=== PATIENT | male | born 1935 | race Caucasian/White ===

== ENCOUNTER 2019-06-06 04:10 | Inpatient (IN) | payer MEDICARE, OTHER ==
[~2019-06-06] VITALS: Ht 182.9 cm; Wt 71.3 kg
[2019-06-06] VITALS (17 sets, daily range): BP systolic 105–157; BP diastolic 51–70
[~2019-06-06 04:10] MED LIST: ACET500T33 PO; ASPI-612 PO; ATORVASTATIN CA80 MG PO; CARV3.12 PO; CHOL200074 PO; CIPR250T30 PO; CLOP75TA PO; FURO20TA3 PO; GUAI600T79 PO; HYDR-3164 PO; ISOS60TA2 PO; LOSA25TA PO; MULT1TAB97 PO; NITR0.4T22 SL; OMEG1CAP38 PO; ONDA4TAB10 SL; ONDA4TAB7 PO; PANT40TA77 PO; POTA10TA12 PO; RANO10002 PO; UBID100C PO
[2019-06-06] MEDS ORDERED: HEPARIN for IV BOLUS 10,000 UNIT/10 ML VIAL. ONE (04:20)
[2019-06-06] MEDS ORDERED: HEPARIN 25,000UTS/500ML PREMIX 500 ML IV ONE (04:20)
[2019-06-06 04:30] LABS: BASO % 1 % (0-3); EOS # 0.4 x10^3/uL (0.0-0.7); EOS % 6 % (0-3); HEMATOCRIT 38.4 % (39.0-53.0); HEMOGLOBIN 12.8 g/dL (13.0-17.5); LYMPH % 18 % (24-48); MEAN CORPUSCULAR HEMOGLOBIN 29 pg (25-35); MEAN CORPUSCULAR HGB CONC 33 g/dL (31-37); MEAN CORPUSCULAR VOLUME 88 fL (79-100); MONO # 0.6 x10^3/uL (0.0-1.1); MONO % 11 % (0-9); NEUT # 3.7 x10^3/uL (1.8-7.7); NEUT % 65 % (31-73); PLATELET COUNT 143 x10^3/uL (140-400); RED BLOOD COUNT 4.36 x10^6/uL (4.30-5.70); RED CELL DISTRIBUTION WIDTH 14.6 % (11.5-14.5); WHITE BLOOD COUNT 5.7 x10^3/uL (4.0-11.0)
[2019-06-06] MEDS: HEPARIN for IV BOLUS 10,000 UNIT/10 ML VIAL. IV ONE ×2 (04:30→04:49)
[2019-06-06 04:42] LABS: PROTHROMBIN TIME PATIENT 13.2 SEC (11.7-14.0)
--- NOTE | 2019-06-06 04:46 | RAD ---
EXAM: CHEST 1 VIEW History: Chest pain COMPARISON: 05/13/2016 TECHNIQUE: Single portable radiograph of the chest FINDINGS: Mild cardiomegaly. Minimal prominent bilateral interstitial lung markings could be chronic interstitial changes. The costophrenic sulci are clear and well demarcated. IMPRESSION: Minimal prominent bilateral interstitial lung markings could be chronic interstitial changes. Electronically signed by: Blake Wallace MD (06/06/2019 4:43 AM) [facility]
[2019-06-06 04:47] LABS: CALCIUM 9.9 mg/dL (8.5-10.1); CREATININE 1.2 mg/dL (0.7-1.3); GFR 57.5; POTASSIUM 3.6 mmol/L (3.5-5.1)
[2019-06-06] MEDS ORDERED: IODIXANOL 320 MG/ML 100 ML VIAL. ONE (04:51)
[2019-06-06] MEDS ORDERED: LIDOCAINE 1% Multi-Dose 20 ML VIAL. ONE (04:51)
[2019-06-06] MEDS ORDERED: HEPARIN for ARTERIAL LINE 1,500 ML ONE (04:51)
--- NOTE | 2019-06-06 04:52 | PHYS DOC ---
Past Medical History Past Medical History: Hypertension, Other Additional Past Medical Histor: ESSENTIAL TREMORS Past Surgical History: Other Additional Past Surgical Histo: open heart surgery, LEFT HAND Alcohol Use: None Drug Use: None Adult General Chief Complaint Chief Complaint: CHEST PAIN [facility] HPI Patient is a 84 year old male with history of dementia who presents via EMS with complaining of chest pain. Patient has dementia and unable to give history but his stated that he complaining of chest pain at 3 AM about an hour prior to arrival to ER while he was watching TV as a constant pain without radiation associated with shortness of breath without nausea and palpitation and treated with nitroglycerin 2 by his . EMS gave the patient 324 mg of aspirin. Patient felt better after second nitroglycerin according to his . Review of Systems Review of Systems Constitutional: Denies fever or chills [] Eyes: Denies change in visual acuity, redness, or eye pain [] HENT: Denies nasal congestion or sore throat [] Respiratory: Denies cough, reports shortness of breath [] Cardiovascular: No additional information not addressed in HPI [] GI: Denies abdominal pain, nausea, vomiting, bloody stools or diarrhea [] : Denies dysuria or hematuria [] Musculoskeletal: Denies back pain or joint pain [] Integument: Denies rash or skin lesions [] Neurologic: Denies headache, focal weakness or sensory changes [] Endocrine: Denies polyuria or polydipsia [] All other systems were reviewed and found to be within normal limits, except as documented in this note. Current Medications Current Medications Current Medications Medications (Trade) Dose Ordered Sig/Kameron Start Time Stop Time Status Last Admin Dose Admin Heparin Sodium (Porcine) (Heparin Sodium) 10,000 unit STK-MED ONCE 06/06/19 04:20 06/06/19 04:20 DC Heparin Sodium/ Dextrose 500 ml @ As Directed STK-MED ONCE 06/06/19 04:20 06/06/19 04:21 DC Allergies Allergies Allergies Coded Allergies Type Severity Reaction Last Updated Verified KEERTHI Inhibitors Allergy Intermediate 03/16/16 Yes ARB-Angiotensin Receptor Antagonist Allergy Intermediate 03/16/16 Yes hydrocodone Allergy Intermediate Nausea and Vomiting 03/16/16 Yes krill oil Allergy Intermediate 03/16/16 Yes donepezil Allergy Mild Nausea and Vomiting 05/13/16 Yes Physical Exam Physical Exam Constitutional: Well nourished, mild distress, non-toxic appearance. [] HENT: Normocephalic, atraumatic. Eyes: PERRLA, EOMI, conjunctiva normal, no discharge. [] Neck: Normal range of motion, no tenderness, supple, no stridor. [] Cardiovascular:Heart rate regular rhythm, no murmur [] Lungs & Thorax: Bilateral breath sounds clear to auscultation [] Abdomen: Bowel sounds normal, soft, no tenderness, no masses, no pulsatile masses. [] Skin: Warm, dry, no erythema, no rash. [] Back: No tenderness, no CVA tenderness. [] Extremities: No tenderness, no cyanosis, no clubbing, ROM intact, no edema. [] Neurologic: Alert and oriented X 1, no focal deficits noted. [] Psychologic: Affect anxious, mood normal. [] Current Patient Data Lab Values Laboratory Tests Test 06/06/19 04:15 White Blood Count 5.7 x10^3/uL (4.0-11.0) Red Blood Count 4.36 x10^6/uL (4.30-5.70) Hemoglobin 12.8 g/dL (13.0-17.5) L Hematocrit 38.4 % (39.0-53.0) L Mean Corpuscular Volume 88 fL (79-100) Mean Corpuscular Hemoglobin 29 pg (25-35) Mean Corpuscular Hemoglobin Concent 33 g/dL (31-37) Red Cell Distribution Width 14.6 % (11.5-14.5) H Platelet Count 143 x10^3/uL (140-400) Neutrophils (%) (Auto) 65 % (31-73) Lymphocytes (%) (Auto) 18 % (24-48) L Monocytes (%) (Auto) 11 % (0-9) H Eosinophils (%) (Auto) 6 % (0-3) H Basophils (%) (Auto) 1 % (0-3) Neutrophils # (Auto) 3.7 x10^3/uL (1.8-7.7) Lymphocytes # (Auto) 1.0 x10^3/uL (1.0-4.8) Monocytes # (Auto) 0.6 x10^3/uL (0.0-1.1) Eosinophils # (Auto) 0.4 x10^3/uL (0.0-0.7) Basophils # (Auto) 0.0 x10^3/uL (0.0-0.2) Prothrombin Time 13.2 SEC (11.7-14.0) Prothrombin Time INR 1.0 (0.8-1.1) Sodium Level 139 mmol/L (136-145) Potassium Level 3.6 mmol/L (3.5-5.1) Chloride Level 103 mmol/L (98-107) Carbon Dioxide Level 29 mmol/L (21-32) Anion Gap 7 (6-14) Blood Urea Nitrogen 22 mg/dL (8-26) Creatinine 1.2 mg/dL (0.7-1.3) Estimated GFR (Cockcroft-Gault) 57.5 BUN/Creatinine Ratio 18 (6-20) Glucose Level 100 mg/dL (70-99) H Calcium Level 9.9 mg/dL (8.5-10.1) Magnesium Level 1.6 mg/dL (1.8-2.4) L Total Bilirubin 0.6 mg/dL (0.2-1.0) Aspartate Amino Transferase (AST) 19 U/L (15-37) Alanine Aminotransferase (ALT) 13 U/L (16-63) L Alkaline Phosphatase 62 U/L (46-116) Creatine Kinase 67 U/L (39-308) Troponin I Quantitative < 0.017 ng/mL (0.000-0.055) GV-Tue-C-Type Natriuretic Peptide 2515 pg/mL (0-449) H Total Protein 8.5 g/dL (6.4-8.2) H Albumin 4.0 g/dL (3.4-5.0) Albumin/Globulin Ratio 0.9 (1.0-1.7) L Lipase 168 U/L (73-393) Laboratory Tests 06/06/19 04:15 Laboratory Tests 06/06/19 04:15 EKG EKG EKG interpreted by me. EKG at 0415 showed normal sinus rhythm at rate of 96, PVCs, prolonged RI at 238, ST elevation in inferior leads with reciprocal changes in anteroseptal leads, Q-wave in inferior and anterior leads. Radiology/Procedures Radiology/Procedures [][facility] [address] [place] [address] IMAGING REPORT Signed PATIENT: POPPY SANCHEZ ACCOUNT: [id number] : 1935 LOCATION: ER AGE: 84 SEX: M EXAM STATUS: PRE ER ORD. PHYSICIAN: ZACHARY BORGES MD REASON: chest pain PROCEDURE: PORTABLE CHEST 1V EXAM: CHEST 1 VIEW History: Chest pain COMPARISON: 05/13/2016 TECHNIQUE: Single portable radiograph of the chest FINDINGS: Mild cardiomegaly. Minimal prominent bilateral interstitial lung markings could be chronic interstitial changes. The costophrenic sulci are clear and well demarcated. IMPRESSION: Minimal prominent bilateral interstitial lung markings could be chronic interstitial changes. Electronically signed by: Blake Wallace MD (06/06/2019 4:43 AM) [facility] DICTATED and SIGNED BY: BLAKE WALLACE MD DATE: 06/06/19 0443 Course & Med Decision Making Course & Med Decision Making Pertinent Labs and Imaging studies reviewed. (See chart for details) Evaluation of patient in ER showed 84-year-old male patient with heart score of 7000 by EMS because of chest pain and ST elevation in inferior leads. EKG in ER showed ST elevation in inferior leads and code STEMI was activated at 0419. Dr. Avila on-call computer aide was consulted at 0 421. Patient has dementia and unable to give history but his stated that he is a DNR but once cardiac catheterization. Dr. Avila presented to ER and was not agreed with STEMI and called patient unstable angina and recommended to admit patient to ICU and start nitroglycerin and heparin drip.Patient requiring admission for further evaluation and treatment. Discussed with Dr. Mckay who is in agreement with admission. Discussed findings and plan with patient and family, who acknowledge understanding and agreement. Dragon Disclaimer Dragon Disclaimer This electronic medical record was generated, in whole or in part, using a voice recognition dictation system. Departure Departure Impression: Primary Impression: Unstable angina Additional Impressions: Chest pain Dementia Hypomagnesemia CHF (congestive heart failure) Disposition: ADMITTED INPATIENT (at 0 425) Admitting Physician: KELSEY (Dr. Mckay accepted admission) Condition: GUARDED Referrals: JORGE A CANAS MD (PCP) The HEART Score for CP Pts HEART Score for Chest Pain: HEART Score for Chest Pain Response (Comments) Value History Moderately Suspicious [address] Depression 2 Age > 65 2 Risk Factors >3 Risk Factors or Hx CAD 2 Troponin < Normal Limit 0 Total 7 Risk Factors: Risk Factors: DM, Current or recent (<one month) smoker, HTN, HLP, family history of CAD, obesity. Risk Scores: Score 0 - 3: 2.5% MACE over next 6 weeks - Discharge Home Score 4 - 6: 20.3% MACE over next 6 weeks - Admit for Clinical Observation Score 7 - 10: 72.7% MACE over next 6 weeks - Early Invasive Strategies Critical Care Time Critical care time was 40 minutes exclusive of procedures. Problem Qualifiers Additional Impressions: Chest pain Chest pain type: unspecified Qualified Codes: R07.9 - Chest pain, unspecified Dementia Dementia type: unspecified type Dementia behavioral disturbance: without behavioral disturbance Qualified Codes: F03.90 - Unspecified dementia without behavioral disturbance CHF (congestive heart failure) Heart failure type: unspecified Heart failure chronicity: unspecified Qualified Codes: I50.9 - Heart failure, unspecified ZACHARY BORGES MD Jun 06, 2019 04:52
[2019-06-06 04:54] LABS: ALBUMIN/GLOBULIN RATIO 0.9 (1.0-1.7); MAGNESIUM 1.6 mg/dL (1.8-2.4); TOTAL BILIRUBIN 0.6 mg/dL (0.2-1.0); TOTAL PROTEIN 8.5 g/dL (6.4-8.2)
[2019-06-06] MEDS ORDERED: MIDAZOLAM HCL/PF 2 MG/2 ML VIAL. ONE (04:55)
[2019-06-06] MEDS ORDERED: fentaNYL PF VIAL 100 MCG/2 ML VIAL ONE (04:55)
[2019-06-06] MEDS ORDERED: HEPARIN 25,000UTS/500ML PREMIX 500 ML IV PRN ×2 (05:45→06:00)
[2019-06-06] MEDS ORDERED: HEPARIN 25,000UTS/500ML PREMIX 500 ML IV STA (05:52)
[2019-06-06] MEDS ORDERED: NITROGLYCERIN PREMIX 250 ML IV ONE (06:00)
[2019-06-06] MEDS ORDERED: HEPARIN for IV BOLUS 10,000 UNIT/10 ML VIAL. IV PRN (06:00)
[2019-06-06] MEDS: ANTI-COAG MONITOR BY PHARMACY. MC PRN (06:04)
--- NOTE | 2019-06-06 10:09 | EKG ---
[facility] [address] [place] [address] Test Date: 2019-06-06 Test Time: 04:16:13 Pat Name: POPPY SANCHEZ Department: Room: 108 1 Gender: M Ux Lead: : 1935 Requested By: ZACHARY BORGES Order Number: [id number] Reading MD: Bryce Ribeiro MD Measurements Intervals [place] Rate: 95 P: 90 MD: 232 QRS: -57 QRSD: 126 T: 98 QT: 360 QTc: 456 Interpretive Statements SINUS RHYTHM PROLONGED MD INTERVAL ABNORMAL LEFT AXIS DEVIATION RBBB CONSIDER PACED RHYTHM Electronically Signed On 06-16-2019 10:23:26 CDT by Bryce Ribeiro MD
[2019-06-06] MEDS ORDERED: ACETAMINOPHEN 500 MG TABLET PO PRN (11:30)
[2019-06-06] MEDS ORDERED: NITROGLYCERIN SUBLINGUAL 0.4 MG BOTTLE OF 25. SL PRN (11:30)
[2019-06-06] MEDS ORDERED: ESCITALOPRAM OXA5 MG PO (11:35)
[2019-06-06] MEDS ORDERED: CHLO25TA10 PO (11:35)
[2019-06-06] MEDS ORDERED: MEMA10TA PO (11:35)
[2019-06-06] MEDS ORDERED: ATOR40TA59 PO (11:35)
[2019-06-06] MEDS ORDERED: HYDR-2867 PO (11:35)
[2019-06-06 12:22] LABS: BILIRUBIN,URINE NEGATIVE (NEG); CLARITY,URINE CLEAR; COLOR,URINE AMBER; NITRITE,URINE NEGATIVE (NEG); PROTEIN,URINE NEGATIVE (NEG-TRACE)
--- NOTE | 2019-06-06 12:27 | PDOC2 ---
CONSULT Date of Consult Date of Consult DATE: 06/06/19 TIME: 12:15 Reason for Consult Reason for Consult: chest pain Referring Physician Referring Physician: Dr. Mckay Identification/Chief Complaint Chief Complaint chest pain Source Source: Caregiver, Chart review, Patient History of Present Illness Reason for Visit: The patient is a moderately demented 84-year-old male who was brought to the emergency room early this morning secondary to episodes of chest pressure. He has an extensive cardiac history including a bypass operation more than 20 years ago. He is followed at [facility] and had a cardiac catheterization approximately one year ago which the patient's family reports showed non-showed disease that was not amenable to revascularization. He has been treated with medications including Ranexa and overall has done reasonably well. His EKG shows inferior Q waves and ST segment changes which are similar to our most recent available EKG from [facility]. Upon discussion the patient is demented. He reports relatively mild chest discomfort which he has had by his report over multiple months. He is resting comfortable in the ER room. Past Medical History Cardiovascular: CAD, CHF, HTN, MA, Hyperlipidemia CENTRAL NERVOUS SYSTEM: Dementia Past Surgical History Past Surgical History: CABG Family History Family History: Heart Disease Social History No ALCOHOL: none Drugs: None Current Problem List Problem List Problems Medical Problems: (1) Chest pain Status: Acute (2) CHF (congestive heart failure) Status: Acute (3) Dementia Status: Acute (4) Hypomagnesemia Status: Acute (5) Unstable angina Status: Acute Current Medications Current Medications Current Medications Heparin Sodium (Porcine) (Heparin Sodium) 10,000 unit STK-MED ONCE .ROUTE ; Start 06/06/19 at 04:20; Stop 06/06/19 at 04:20; Status DC Heparin Sodium/ Dextrose 500 ml @ As Directed STK-MED ONCE IV ; Start 06/06/19 at 04:20; Stop 06/06/19 at 04:21; Status DC Heparin Sodium (Porcine) (Heparin Sodium) 4,000 unit 1X ONCE IV Last administered on 06/06/19at 04:30; Start 06/06/19 at 05:00; Stop 06/06/19 at 05:01; Status DC Iodixanol (Visipaque 320) 100 ml STK-MED ONCE .ROUTE ; Start 06/06/19 at 04:51; Stop 06/06/19 at 04:51; Status DC Lidocaine HCl (Lidocaine 1% 20ml Vial) 20 ml STK-MED ONCE .ROUTE ; Start 06/06/19 at 04:51; Stop 06/06/19 at 04:51; Status DC Heparin Sodium/ Sodium Chloride 1,500 ml @ As Directed STK-MED ONCE .ROUTE ; Start 06/06/19 at 04:51; Stop 06/06/19 at 04:51; Status DC Fentanyl Citrate (Fentanyl 2ml Vial) 100 mcg STK-MED ONCE .ROUTE ; Start 06/06/19 at 04:55; Stop 06/06/19 at 04:55; Status DC Midazolam HCl (Versed) 2 mg STK-MED ONCE .ROUTE ; Start 06/06/19 at 04:55; Stop 06/06/19 at 04:55; Status DC Heparin Sodium/ Dextrose 500 ml @ 0 mls/hr CONT PRN IV SEE I/O RECORD; Start 06/06/19 at 05:45; Status Cancel Nitroglycerin/ Dextrose 250 ml @ 0 mls/hr 1X ONCE IV Last administered on 06/06/19at 06:05; Start 06/06/19 at 06:00; Stop 06/06/19 at 06:01; Status DC Heparin Sodium/ Dextrose 500 ml @ 0 mls/hr CONT STAT IV ; Start 06/06/19 at 05:52; Stop 06/06/19 at 05:53; Status UNV Heparin Sodium/ Dextrose 500 ml @ 0 mls/hr CONT PRN IV NSTEMI Last administered on 06/06/19at 06:15; Start 06/06/19 at 06:00 Heparin Sodium (Porcine) (Heparin Sodium) 1,800 unit PRN Q6HRS PRN IV FOR UFH LEVEL LESS THAN 0.2; Start 06/06/19 at 06:00 Info (Anti-Coagulation Monitoring By Pharmacy) 1 each PRN DAILY PRN MC SEE COMMENTS Last administered on 06/06/19at 06:04; Start 06/06/19 at 06:15 Acetaminophen (Tylenol) 500 mg PRN Q6HRS PRN PO PAIN; Start 06/06/19 at 11:30 Aspirin (Ecotrin) 81 mg DAILY PO ; Start 06/06/19 at 12:30 Clopidogrel Bisulfate (Plavix) 75 mg DAILY PO ; Start 06/06/19 at 12:30 Nitroglycerin (Nitrostat) 0.4 mg PRN Q5MIN PRN SL CHEST PAIN; Start 06/06/19 at 11:30 Pantoprazole Sodium (Protonix) 40 mg DAILY PO ; Start 06/06/19 at 12:30 Vitamin D (Vitamin D3) 2,000 unit DAILY PO ; Start 06/06/19 at 12:30 Multivitamins (Thera M Plus) 1 tab DAILY PO ; Start 06/06/19 at 12:30 Non-Formulary Medication (Ubidecarenone (Coenzyme Q10)) 100 mg DAILY PO ; Start 06/07/19 at 09:00; Status UNV Active Scripts Active [place] 5-325 Tablet (Acetaminophen/Hydrocodone Bitart) 1 Each Tablet 1-2 Tab PO Q4-6HRS Reported Namenda (Memantine Hcl) 10 Mg Tablet 1 Tab PO BID Hydralazine Hcl 10 Mg Tablet 1 Tab PO BID Lexapro (Escitalopram Oxalate) 5 Mg Tablet 5 Mg PO DAILY Chlorthalidone (Chlorthalidone) 25 Mg Tablet 25 Mg PO DAILY Atorvastatin Calcium 40 Mg Tablet 40 Mg PO HS Coenzyme Q10 (Ubidecarenone) 100 Mg Capsule 100 Mg PO DAILY Clopidogrel (Clopidogrel Bisulfate) 75 Mg Tablet 1 Tab PO DAILY Vitamin D-3 (Cholecalciferol (Vitamin D3)) 2,000 Unit Capsule 2,000 Unit PO ELINOR Y Daily Multiple Vitamin (Multivitamin) 1 Each Tablet 1 Each PO DAILY Aspirin Ec (Aspirin) 81 Mg Tablet. 1 Tab PO DAILY Tylenol Extra Strength (Acetaminophen) 500 Mg Tablet 500 Mg PO Q6HRS PRN Protonix (Pantoprazole Sodium) 40 Mg Tablet. 1 Tab PO DAILY NITROGLYCERIN SubLingual (Nitroglycerin) 0.4 Mg Tab.subl 0.4 Mg SL PRN Q5MIN PRN Allergies Allergies: Coded Allergies: KEERTHI Inhibitors (Verified Allergy, Intermediate, 03/16/16) ARB-Angiotensin Receptor Antagonist (Verified Allergy, Intermediate, 03/16/16) hydrocodone (Verified Allergy, Intermediate, Nausea and Vomiting, 03/16/16) krill oil (Verified Allergy, Intermediate, 03/16/16) donepezil (Verified Allergy, Mild, Nausea and Vomiting, 05/13/16) ROS General: YES: Fatigue Cardiovascular: yes Chest Pain Physical Exam General: mild distress HEENT: Atraumatic Lungs: Other (mildly decreased breath sounds) Heart: Regular rate Abdomen: Normal bowel sounds Vitals VITALS Vital Signs Date Time Temp Pulse Resp B/P (MAP) Pulse Ox O2 Delivery O2 Flow Rate FiO2 06/06/19 12:00 60 16 125/61 (82) 99 Nasal Cannula 2.0 06/06/19 08:00 98.4 98.4 Labs Labs Laboratory Tests Test 06/06/19 04:15 White Blood Count 5.7 x10^3/uL (4.0-11.0) Red Blood Count 4.36 x10^6/uL (4.30-5.70) Hemoglobin 12.8 g/dL (13.0-17.5) Hematocrit 38.4 % (39.0-53.0) Mean Corpuscular Volume 88 fL (79-100) Mean Corpuscular Hemoglobin 29 pg (25-35) Mean Corpuscular Hemoglobin Concent 33 g/dL (31-37) Red Cell Distribution Width 14.6 % (11.5-14.5) Platelet Count 143 x10^3/uL (140-400) Neutrophils (%) (Auto) 65 % (31-73) Lymphocytes (%) (Auto) 18 % (24-48) Monocytes (%) (Auto) 11 % (0-9) Eosinophils (%) (Auto) 6 % (0-3) Basophils (%) (Auto) 1 % (0-3) Neutrophils # (Auto) 3.7 x10^3/uL (1.8-7.7) Lymphocytes # (Auto) 1.0 x10^3/uL (1.0-4.8) Monocytes # (Auto) 0.6 x10^3/uL (0.0-1.1) Eosinophils # (Auto) 0.4 x10^3/uL (0.0-0.7) Basophils # (Auto) 0.0 x10^3/uL (0.0-0.2) Prothrombin Time 13.2 SEC (11.7-14.0) Prothromb Time International Ratio 1.0 (0.8-1.1) Sodium Level 139 mmol/L (136-145) Potassium Level 3.6 mmol/L (3.5-5.1) Chloride Level 103 mmol/L (98-107) Carbon Dioxide Level 29 mmol/L (21-32) Anion Gap 7 (6-14) Blood Urea Nitrogen 22 mg/dL (8-26) Creatinine 1.2 mg/dL (0.7-1.3) Estimated GFR (Cockcroft-Gault) 57.5 BUN/Creatinine Ratio 18 (6-20) Glucose Level 100 mg/dL (70-99) Calcium Level 9.9 mg/dL (8.5-10.1) Magnesium Level 1.6 mg/dL (1.8-2.4) Total Bilirubin 0.6 mg/dL (0.2-1.0) Aspartate Amino Transf (AST/SGOT) 19 U/L (15-37) Alanine Aminotransferase (ALT/SGPT) 13 U/L (16-63) Alkaline Phosphatase 62 U/L (46-116) Creatine Kinase 67 U/L (39-308) Troponin I Quantitative < 0.017 ng/mL (0.000-0.055) KJ-Ndb-G-Type Natriuretic Peptide 2515 pg/mL (0-449) Total Protein 8.5 g/dL (6.4-8.2) Albumin 4.0 g/dL (3.4-5.0) Albumin/Globulin Ratio 0.9 (1.0-1.7) Lipase 168 U/L (73-393) Laboratory Tests Test 06/06/19 04:15 White Blood Count 5.7 x10^3/uL (4.0-11.0) Red Blood Count 4.36 x10^6/uL (4.30-5.70) Hemoglobin 12.8 g/dL (13.0-17.5) Hematocrit 38.4 % (39.0-53.0) Mean Corpuscular Volume 88 fL (79-100) Mean Corpuscular Hemoglobin 29 pg (25-35) Mean Corpuscular Hemoglobin Concent 33 g/dL (31-37) Red Cell Distribution Width 14.6 % (11.5-14.5) Platelet Count 143 x10^3/uL (140-400) Neutrophils (%) (Auto) 65 % (31-73) Lymphocytes (%) (Auto) 18 % (24-48) Monocytes (%) (Auto) 11 % (0-9) Eosinophils (%) (Auto) 6 % (0-3) Basophils (%) (Auto) 1 % (0-3) Neutrophils # (Auto) 3.7 x10^3/uL (1.8-7.7) Lymphocytes # (Auto) 1.0 x10^3/uL (1.0-4.8) Monocytes # (Auto) 0.6 x10^3/uL (0.0-1.1) Eosinophils # (Auto) 0.4 x10^3/uL (0.0-0.7) Basophils # (Auto) 0.0 x10^3/uL (0.0-0.2) Prothrombin Time 13.2 SEC (11.7-14.0) Prothromb Time International Ratio 1.0 (0.8-1.1) Sodium Level 139 mmol/L (136-145) Potassium Level 3.6 mmol/L (3.5-5.1) Chloride Level 103 mmol/L (98-107) Carbon Dioxide Level 29 mmol/L (21-32) Anion Gap 7 (6-14) Blood Urea Nitrogen 22 mg/dL (8-26) Creatinine 1.2 mg/dL (0.7-1.3) Estimated GFR (Cockcroft-Gault) 57.5 BUN/Creatinine Ratio 18 (6-20) Glucose Level 100 mg/dL (70-99) Calcium Level 9.9 mg/dL (8.5-10.1) Magnesium Level 1.6 mg/dL (1.8-2.4) Total Bilirubin 0.6 mg/dL (0.2-1.0) Aspartate Amino Transf (AST/SGOT) 19 U/L (15-37) Alanine Aminotransferase (ALT/SGPT) 13 U/L (16-63) Alkaline Phosphatase 62 U/L (46-116) Creatine Kinase 67 U/L (39-308) Troponin I Quantitative < 0.017 ng/mL (0.000-0.055) DH-Oua-B-Type Natriuretic Peptide 2515 pg/mL (0-449) Total Protein 8.5 g/dL (6.4-8.2) Albumin 4.0 g/dL (3.4-5.0) Albumin/Globulin Ratio 0.9 (1.0-1.7) Lipase 168 U/L (73-393) Images Images CXR. Minimal bilaterally increased lung markings. Assessment/Plan Assessment/Plan 1. Chest pain/angina. Extensive cardiac history as above including cath approximately one year ago. Not in acute distress. Abnormal EKG but similar to past EKG. Do not believe that an emergent cath is indicated at this time. Will treat with heparin. IV NTG for HTN and relatively mild chest pressure. Initial troponin normal. Discussed with the patient's family. 2. Relatively mild acute heart failure. Will control blood pressure. Check an echocardiogram. 3. Hypertension. Initial use of IV nitroglycerin as above. Resume home medications. 4. Hypomagnesemia. Will replace and monitor. 5. Moderate dementia. Thank you for allowing us to participate in the care of your patient. The patient was re-evaluated approximately 90 minutes post initial evaluation. He is sleeping in bed. BP controlled. Rhythm stable. Will continue as above. HERNÁN FALLON MD Jun 06, 2019 12:27
--- NOTE | 2019-06-06 12:34 | HP ---
ADMIT DATE: 06/06/2019 CHIEF COMPLAINT: Chest pain. HISTORY OF PRESENT ILLNESS: The patient is a pleasant 84-year-old male who presented to the ER complaining of chest pain, rates it as 7/10, started about 3 in the morning. It is a constant pain. No radiation. EMS was called. He was given aspirin and brought to the ER. While in the ER, he was noted to have some improvement when he was given some nitroglycerin. He had some subtle EKG changes. Now, he is admitted to the ICU on a heparin drip and nitro drip. PAST MEDICAL HISTORY: Dementia, hypertension, coronary artery disease with open heart bypass surgery, left hand surgery. ALLERGIES: ARBs and ACEs, HYDROCODONE, KRILL OIL, AND DONEPEZIL. REVIEW OF SYSTEMS: GENERAL: No history of weight change, weakness or fevers. SKIN: No bruising, hair changes or rashes. EYES: No blurred, double or loss of vision. NOSE AND THROAT: No history of nosebleeds, hoarseness or sore throat. HEART: He complains of chest pain. LUNGS: Denies cough, hemoptysis, wheezing or shortness of breath. GASTROINTESTINAL: Denies changes in appetite, nausea, vomiting, diarrhea or constipation. GENITOURINARY: No history of frequency, urgency, hesitancy or nocturia. NEUROLOGIC: Denies history of numbness, tingling, tremor or weakness. PSYCHIATRIC: No history of panic, anxiety or depression. ENDOCRINE: No history of heat or cold intolerance, polyuria or polydipsia. EXTREMITIES: Denies muscle weakness, joint pain, pain on walking or stiffness. PHYSICAL EXAMINATION: VITALS: Within normal limits and are stable. GENERAL: No apparent distress. Alert and oriented. HEENT: Head is normocephalic, atraumatic, pupils were equally round and reactive to light and accommodation. NECK: Supple, no JVD, no thyromegaly was noted. LUNGS: Clear to auscultation in all lung osman without rhonchi or wheezing. HEART: RRR, S1, S2 present. Peripheral pulses intact, no obvious murmurs were noted. ABDOMEN: Soft, nontender. Positive bowel sounds no organomegaly, normal bowel sounds. EXTREMITIES: Without any cyanosis, clubbing, or edema. Pedal pulses intact, Homans sign is negative. NEUROLOGIC: Normal speech, normal tone. A & O x3, moves all extremities, no obvious focal deficits. PSYCHIATRIC: Normal affect, normal mood. Stable. SKIN: No ulcerations or rashes, good skin turgor, no jaundice. VASCULAR: Good capillary refill, neurovascular bundle appears to be intact. LABORATORY DATA: Troponin is 0. INR is 1. BNP 2515. ASSESSMENT AND PLAN: Chest pain in an elderly male with known coronary artery disease. The patient has been admitted. We will check serial enzymes, serial EKGs, ICU monitoring. Consult Cardiology. DVT prophylaxis, home meds, nitro drip, heparin drip. PROGNOSIS: Guarded. RELL QUIJANO DO DR: CHRISTIE/charbel JOB#: [id number] / [id number]
[2019-06-06 12:37] LABS: HYALINE CASTS, URINE MODERATE /HPF
[2019-06-06 12:41] LABS: AMORPHOUS SEDIMENT,UR PRESENT /HPF; BACTERIA,URINE 0 /HPF (0-FEW); RBC,URINE 0 /HPF (0-2); WBC,URINE 0 /HPF (0-4)
[2019-06-06] MEDS: CLOPIDOGREL BISULFATE 75 MG TABLET PO SCH (12:46)
[2019-06-06] MEDS: ASPIRIN ENTERIC COATED 81 MG TABLET.DR. PO SCH (12:46)
[2019-06-06] MEDS: PANTOPRAZOLE 40 MG TABLET.DR. PO SCH (12:46)
[2019-06-06] MEDS: CHOLECALCIFEROL (VITAMIN D3) 1,000 UNIT TABLET PO SCH (12:46)
[2019-06-06] MEDS: MULTIVITAMIN with MINERAL TABLET. PO SCH (12:46)
[2019-06-06] MEDS ORDERED: MAGNESIUM SULFATE 1GM 100 ML IV ONE (13:00)
[2019-06-06] MEDS: hydrALAZINE 10 MG TABLET PO SCH (17:39)
[2019-06-07] VITALS (15 sets, daily range): BP systolic 102–142; BP diastolic 47–79
[2019-06-07 07:37] LABS: BASO % 1 % (0-3); EOS # 0.4 x10^3/uL (0.0-0.7); EOS % 7 % (0-3); HEMATOCRIT 38.1 % (39.0-53.0); HEMOGLOBIN 12.6 g/dL (13.0-17.5); LYMPH % 18 % (24-48); MEAN CORPUSCULAR HEMOGLOBIN 29 pg (25-35); MEAN CORPUSCULAR HGB CONC 33 g/dL (31-37); MEAN CORPUSCULAR VOLUME 87 fL (79-100); MONO # 0.6 x10^3/uL (0.0-1.1); MONO % 11 % (0-9); NEUT # 3.7 x10^3/uL (1.8-7.7); NEUT % 65 % (31-73); PLATELET COUNT 124 x10^3/uL (140-400); RED BLOOD COUNT 4.36 x10^6/uL (4.30-5.70); RED CELL DISTRIBUTION WIDTH 14.4 % (11.5-14.5); WHITE BLOOD COUNT 5.7 x10^3/uL (4.0-11.0)
[2019-06-07 07:46] LABS: CALCIUM 8.8 mg/dL (8.5-10.1); MAGNESIUM 1.6 mg/dL (1.8-2.4); POTASSIUM 3.3 mmol/L (3.5-5.1)
[2019-06-07] MEDS: CLOPIDOGREL BISULFATE 75 MG TABLET PO SCH (08:36)
[2019-06-07] MEDS: ASPIRIN ENTERIC COATED 81 MG TABLET.DR. PO SCH (08:36)
[2019-06-07] MEDS: PANTOPRAZOLE 40 MG TABLET.DR. PO SCH (08:36)
[2019-06-07] MEDS: CHOLECALCIFEROL (VITAMIN D3) 1,000 UNIT TABLET PO SCH (08:36)
[2019-06-07] MEDS: hydrALAZINE 10 MG TABLET PO SCH ×2 (08:37→21:30)
[2019-06-07] MEDS: MULTIVITAMIN with MINERAL TABLET. PO SCH (08:37)
[2019-06-07] MEDS ORDERED: NON FORMULARY ITEM (Ubidecarenone (Coenzyme Q10) 100 MG) PO SCH (09:00)
[2019-06-07] MEDS: ANTI-COAG MONITOR BY PHARMACY. MC PRN (09:58)
--- NOTE | 2019-06-07 12:44 | PDOC ---
[facility] [facility] PROGRESS NOTE Chief Complaint Chief Complaint Unstable angina CAD History of Present Illness History of Present Illness 06/07/19 Pt was seen and examined in the ICU Pt was accompanied by Pt was pleasant, but confused when asked questions IV heparin is still administered Nitro stopped Charts and labs reviewed Potassium was 3.3, down from 3.6 Magnesium remains 1.6 D/w RN Vitals/I&O Vitals/I&O: Vital Signs Date Time Temp Pulse Resp B/P (MAP) Pulse Ox O2 Delivery O2 Flow Rate FiO2 06/07/19 11:00 77 16 127/60 (82) Room Air 06/07/19 08:00 98.6 98.6 06/07/19 00:00 99 06/06/19 12:00 2.0 I & O 06/06/19 06/06/19 06/07/19 15:00 23:00 07:00 Intake Total 1132 ml 116.2 ml Output Total 200 ml 200 ml 450 ml Balance -200 ml 932 ml -333.8 ml Physical Exam General: mild distress Heart: Regular rate Lungs: Clear Abdomen: Normal bowel sounds Labs Labs: Laboratory Tests Test 06/06/19 14:15 06/06/19 18:50 06/07/19 01:20 06/07/19 07:25 Troponin I Quantitative 0.737 ng/mL (0.000-0.055) 0.807 ng/mL (0.000-0.055) 0.509 ng/mL (0.000-0.055) Heparin Anti-Xa Act, Unfractionated 0.64 IU/mL (0.30-0.70) 0.56 IU/mL (0.30-0.70) 0.39 IU/mL (0.30-0.70) White Blood Count 5.7 x10^3/uL (4.0-11.0) Red Blood Count 4.36 x10^6/uL (4.30-5.70) Hemoglobin 12.6 g/dL (13.0-17.5) Hematocrit 38.1 % (39.0-53.0) Mean Corpuscular Volume 87 fL (79-100) Mean Corpuscular Hemoglobin 29 pg (25-35) Mean Corpuscular Hemoglobin Concent 33 g/dL (31-37) Red Cell Distribution Width 14.4 % (11.5-14.5) Platelet Count 124 x10^3/uL (140-400) Neutrophils (%) (Auto) 65 % (31-73) Lymphocytes (%) (Auto) 18 % (24-48) Monocytes (%) (Auto) 11 % (0-9) Eosinophils (%) (Auto) 7 % (0-3) Basophils (%) (Auto) 1 % (0-3) Neutrophils # (Auto) 3.7 x10^3/uL (1.8-7.7) Lymphocytes # (Auto) 1.0 x10^3/uL (1.0-4.8) Monocytes # (Auto) 0.6 x10^3/uL (0.0-1.1) Eosinophils # (Auto) 0.4 x10^3/uL (0.0-0.7) Basophils # (Auto) 0.0 x10^3/uL (0.0-0.2) Sodium Level 133 mmol/L (136-145) Potassium Level 3.3 mmol/L (3.5-5.1) Chloride Level 102 mmol/L (98-107) Carbon Dioxide Level 26 mmol/L (21-32) Anion Gap 5 (6-14) Blood Urea Nitrogen 19 mg/dL (8-26) Creatinine 1.0 mg/dL (0.7-1.3) Estimated GFR (Cockcroft-Gault) 71.0 Glucose Level 97 mg/dL (70-99) Calcium Level 8.8 mg/dL (8.5-10.1) Magnesium Level 1.6 mg/dL (1.8-2.4) Assessment and Plan Assessmemt and Plan Problems Medical Problems: (1) Chest pain Status: Acute (2) CHF (congestive heart failure) Status: Acute (3) Dementia Status: Acute (4) Hypomagnesemia Status: Acute (5) Unstable angina Status: Acute Assessment Chest pain CHF Dementia Hypomagnesemia Hypokalemia Unstable angina Plan ICU monitor Home meds IV heparin Potassium 40meq DNR Appreciate input from cardiology Comment Review of Relevant I have reviewed the following items to (where applicable) has been applied. Medications: Current Medications Medications (Trade) Dose Ordered Sig/Kameron Route PRN Reason Start Time Stop Time Status Last Admin Dose Admin Magnesium Sulfate/ Dextrose 100 ml @ 100 mls/hr 1X ONCE IV 9/28/19 13:00 06/06/19 13:59 DC 06/06/19 12:47 Hydralazine HCl (Apresoline) 10 mg BID PO 06/06/19 16:00 06/06/19 17:39 RELL QUIJANO III DO Jun 07, 2019 12:44
[2019-06-07] MEDS ORDERED: POTASSIUM CHLORIDE 20 MEQ TABLET.ER. PO ONE ×2 (13:00→17:45)
--- NOTE | 2019-06-07 13:28 | PDOC ---
PROGRESS NOTES Subjective Subjective Patient seen and examined Objective Objective Vital Signs Date Time Temp Pulse Resp B/P (MAP) Pulse Ox O2 Delivery O2 Flow Rate FiO2 06/07/19 11:00 77 16 127/60 (82) Room Air 06/07/19 08:00 98.6 98.6 06/07/19 00:00 99 06/06/19 12:00 2.0 Intake and Output 06/07/19 07:00 Intake Total 1248.2 ml Output Total 850 ml Balance 398.2 ml Intake Oral 800 ml IV Total 448.2 ml Output Urine Total 850 ml # Bowel Movements 1 Physical Exam Abdomen: Normal bowel sounds Heart: Regular rate General: No acute distress Lungs: Other (slightly decreased breath sounds) Assessment Assessment Problems Medical Problems: (1) Chest pain Status: Acute (2) CHF (congestive heart failure) Status: Acute (3) Dementia Status: Acute (4) Hypomagnesemia Status: Acute (5) Unstable angina Status: Acute 1. Chest pain/angina. Extensive cardiac history as above including cath approximately one year ago. Chest pain resolved. Abnormal EKG but similar to past EKG. No significant elevation in troponin with a peak of 0.8. We'll continue heparin. Obtain records from [facility]. Continue other present treatment. 2. Relatively mild acute heart failure. Will control blood pressure. Echocardiogram pending. 3. Hypertension. Initial use of IV nitroglycerin as above. Resume home medications. 4. Hypomagnesemia. Will replace and monitor. 5. Moderate dementia. Comment Review of Relevant I have reviewed the following items to (where applicable) has been applied. Labs Laboratory Tests Test 06/06/19 04:15 06/06/19 11:45 06/06/19 12:20 06/06/19 14:15 White Blood Count 5.7 x10^3/uL (4.0-11.0) Red Blood Count 4.36 x10^6/uL (4.30-5.70) Hemoglobin 12.8 g/dL (13.0-17.5) Hematocrit 38.4 % (39.0-53.0) Mean Corpuscular Volume 88 fL (79-100) Mean Corpuscular Hemoglobin 29 pg (25-35) Mean Corpuscular Hemoglobin Concent 33 g/dL (31-37) Red Cell Distribution Width 14.6 % (11.5-14.5) Platelet Count 143 x10^3/uL (140-400) Neutrophils (%) (Auto) 65 % (31-73) Lymphocytes (%) (Auto) 18 % (24-48) Monocytes (%) (Auto) 11 % (0-9) Eosinophils (%) (Auto) 6 % (0-3) Basophils (%) (Auto) 1 % (0-3) Neutrophils # (Auto) 3.7 x10^3/uL (1.8-7.7) Lymphocytes # (Auto) 1.0 x10^3/uL (1.0-4.8) Monocytes # (Auto) 0.6 x10^3/uL (0.0-1.1) Eosinophils # (Auto) 0.4 x10^3/uL (0.0-0.7) Basophils # (Auto) 0.0 x10^3/uL (0.0-0.2) Prothrombin Time 13.2 SEC (11.7-14.0) Prothromb Time International Ratio 1.0 (0.8-1.1) Sodium Level 139 mmol/L (136-145) Potassium Level 3.6 mmol/L (3.5-5.1) Chloride Level 103 mmol/L (98-107) Carbon Dioxide Level 29 mmol/L (21-32) Anion Gap 7 (6-14) Blood Urea Nitrogen 22 mg/dL (8-26) Creatinine 1.2 mg/dL (0.7-1.3) Estimated GFR (Cockcroft-Gault) 57.5 BUN/Creatinine Ratio 18 (6-20) Glucose Level 100 mg/dL (70-99) Calcium Level 9.9 mg/dL (8.5-10.1) Magnesium Level 1.6 mg/dL (1.8-2.4) Total Bilirubin 0.6 mg/dL (0.2-1.0) Aspartate Amino Transf (AST/SGOT) 19 U/L (15-37) Alanine Aminotransferase (ALT/SGPT) 13 U/L (16-63) Alkaline Phosphatase 62 U/L (46-116) Creatine Kinase 67 U/L (39-308) Troponin I Quantitative < 0.017 ng/mL (0.000-0.055) 0.737 ng/mL (0.000-0.055) HU-Eaq-T-Type Natriuretic Peptide 2515 pg/mL (0-449) Total Protein 8.5 g/dL (6.4-8.2) Albumin 4.0 g/dL (3.4-5.0) Albumin/Globulin Ratio 0.9 (1.0-1.7) Lipase 168 U/L (73-393) Urine Collection Type Unknown Urine Color Ernestina Urine Clarity Clear Urine pH 5.0 Urine Specific Amity 1.025 Urine Protein Negative mg/dL (NEG-TRACE) Urine Glucose (UA) Negative mg/dL (NEG) Urine Ketones (Stick) Negative mg/dL (NEG) Urine Blood Negative (NEG) Urine Nitrite Negative (NEG) Urine Bilirubin Negative (NEG) Urine Urobilinogen Dipstick 1.0 mg/dL (0.2 mg/dL) Urine Leukocyte Esterase Negative (NEG) Urine RBC 0 /HPF (0-2) Urine WBC 0 /HPF (0-4) Urine Amorphous Sediment Present /HPF Urine Bacteria 0 /HPF (0-FEW) Urine Hyaline Casts Moderate /HPF Urine Mucus Marked /LPF Heparin Anti-Xa Act, Unfractionated 0.19 IU/mL (0.30-0.70) Test 06/06/19 18:50 06/07/19 01:20 06/07/19 07:25 Heparin Anti-Xa Act, Unfractionated 0.64 IU/mL (0.30-0.70) 0.56 IU/mL (0.30-0.70) 0.39 IU/mL (0.30-0.70) Troponin I Quantitative 0.807 ng/mL (0.000-0.055) 0.509 ng/mL (0.000-0.055) White Blood Count 5.7 x10^3/uL (4.0-11.0) Red Blood Count 4.36 x10^6/uL (4.30-5.70) Hemoglobin 12.6 g/dL (13.0-17.5) Hematocrit 38.1 % (39.0-53.0) Mean Corpuscular Volume 87 fL (79-100) Mean Corpuscular Hemoglobin 29 pg (25-35) Mean Corpuscular Hemoglobin Concent 33 g/dL (31-37) Red Cell Distribution Width 14.4 % (11.5-14.5) Platelet Count 124 x10^3/uL (140-400) Neutrophils (%) (Auto) 65 % (31-73) Lymphocytes (%) (Auto) 18 % (24-48) Monocytes (%) (Auto) 11 % (0-9) Eosinophils (%) (Auto) 7 % (0-3) Basophils (%) (Auto) 1 % (0-3) Neutrophils # (Auto) 3.7 x10^3/uL (1.8-7.7) Lymphocytes # (Auto) 1.0 x10^3/uL (1.0-4.8) Monocytes # (Auto) 0.6 x10^3/uL (0.0-1.1) Eosinophils # (Auto) 0.4 x10^3/uL (0.0-0.7) Basophils # (Auto) 0.0 x10^3/uL (0.0-0.2) Sodium Level 133 mmol/L (136-145) Potassium Level 3.3 mmol/L (3.5-5.1) Chloride Level 102 mmol/L (98-107) Carbon Dioxide Level 26 mmol/L (21-32) Anion Gap 5 (6-14) Blood Urea Nitrogen 19 mg/dL (8-26) Creatinine 1.0 mg/dL (0.7-1.3) Estimated GFR (Cockcroft-Gault) 71.0 Glucose Level 97 mg/dL (70-99) Calcium Level 8.8 mg/dL (8.5-10.1) Magnesium Level 1.6 mg/dL (1.8-2.4) Laboratory Tests Test 06/06/19 14:15 06/06/19 18:50 06/07/19 01:20 06/07/19 07:25 Troponin I Quantitative 0.737 ng/mL (0.000-0.055) 0.807 ng/mL (0.000-0.055) 0.509 ng/mL (0.000-0.055) Heparin Anti-Xa Act, Unfractionated 0.64 IU/mL (0.30-0.70) 0.56 IU/mL (0.30-0.70) 0.39 IU/mL (0.30-0.70) White Blood Count 5.7 x10^3/uL (4.0-11.0) Red Blood Count 4.36 x10^6/uL (4.30-5.70) Hemoglobin 12.6 g/dL (13.0-17.5) Hematocrit 38.1 % (39.0-53.0) Mean Corpuscular Volume 87 fL (79-100) Mean Corpuscular Hemoglobin 29 pg (25-35) Mean Corpuscular Hemoglobin Concent 33 g/dL (31-37) Red Cell Distribution Width 14.4 % (11.5-14.5) Platelet Count 124 x10^3/uL (140-400) Neutrophils (%) (Auto) 65 % (31-73) Lymphocytes (%) (Auto) 18 % (24-48) Monocytes (%) (Auto) 11 % (0-9) Eosinophils (%) (Auto) 7 % (0-3) Basophils (%) (Auto) 1 % (0-3) Neutrophils # (Auto) 3.7 x10^3/uL (1.8-7.7) Lymphocytes # (Auto) 1.0 x10^3/uL (1.0-4.8) Monocytes # (Auto) 0.6 x10^3/uL (0.0-1.1) Eosinophils # (Auto) 0.4 x10^3/uL (0.0-0.7) Basophils # (Auto) 0.0 x10^3/uL (0.0-0.2) Sodium Level 133 mmol/L (136-145) Potassium Level 3.3 mmol/L (3.5-5.1) Chloride Level 102 mmol/L (98-107) Carbon Dioxide Level 26 mmol/L (21-32) Anion Gap 5 (6-14) Blood Urea Nitrogen 19 mg/dL (8-26) Creatinine 1.0 mg/dL (0.7-1.3) Estimated GFR (Cockcroft-Gault) 71.0 Glucose Level 97 mg/dL (70-99) Calcium Level 8.8 mg/dL (8.5-10.1) Magnesium Level 1.6 mg/dL (1.8-2.4) Medications Current Medications Heparin Sodium (Porcine) (Heparin Sodium) 10,000 unit Project Fixup ONCE .ROUTE ; Start 06/06/19 at 04:20; Stop 06/06/19 at 04:20; Status DC Heparin Sodium/ Dextrose 500 ml @ As Directed STK-MED ONCE IV ; Start 06/06/19 at 04:20; Stop 06/06/19 at 04:21; Status DC Heparin Sodium (Porcine) (Heparin Sodium) 4,000 unit 1X ONCE IV Last administered on 06/06/19at 04:30; Start 06/06/19 at 05:00; Stop 06/06/19 at 05:01; Status DC Iodixanol (Visipaque 320) 100 ml STK-MED ONCE .ROUTE ; Start 06/06/19 at 04:51; Stop 06/06/19 at 04:51; Status DC Lidocaine HCl (Lidocaine 1% 20ml Vial) 20 ml STK-MED ONCE .ROUTE ; Start 06/06/19 at 04:51; Stop 06/06/19 at 04:51; Status DC Heparin Sodium/ Sodium Chloride 1,500 ml @ As Directed STK-MED ONCE .ROUTE ; Start 06/06/19 at 04:51; Stop 06/06/19 at 04:51; Status DC Fentanyl Citrate (Fentanyl 2ml Vial) 100 mcg STK-MED ONCE .ROUTE ; Start 06/06/19 at 04:55; Stop 06/06/19 at 04:55; Status DC Midazolam HCl (Versed) 2 mg STK-MED ONCE .ROUTE ; Start 06/06/19 at 04:55; Stop 06/06/19 at 04:55; Status DC Heparin Sodium/ Dextrose 500 ml @ 0 mls/hr CONT PRN IV SEE I/O RECORD; Start 06/06/19 at 05:45; Status Cancel Nitroglycerin/ Dextrose 250 ml @ 0 mls/hr 1X ONCE IV Last administered on 06/06/19at 06:05; Start 06/06/19 at 06:00; Stop 06/06/19 at 06:01; Status DC Heparin Sodium/ Dextrose 500 ml @ 0 mls/hr CONT STAT IV ; Start 06/06/19 at 05:52; Stop 06/06/19 at 05:53; Status UNV Heparin Sodium/ Dextrose 500 ml @ 0 mls/hr CONT PRN IV NSTEMI Last administered on 06/06/19at 06:15; Start 06/06/19 at 06:00 Heparin Sodium (Porcine) (Heparin Sodium) 1,800 unit PRN Q6HRS PRN IV FOR UFH LEVEL LESS THAN 0.2; Start 06/06/19 at 06:00 Info (Anti-Coagulation Monitoring By Pharmacy) 1 each PRN DAILY PRN MC SEE COMMENTS Last administered on 06/07/19at 09:58; Start 06/06/19 at 06:15 Acetaminophen (Tylenol) 500 mg PRN Q6HRS PRN PO PAIN; Start 06/06/19 at 11:30 Aspirin (Ecotrin) 81 mg DAILY PO Last administered on 06/07/19at 08:36; Start 06/06/19 at 12:30 Clopidogrel Bisulfate (Plavix) 75 mg DAILY PO Last administered on 06/07/19 08:36; Start 06/06/19 at 12:30 Nitroglycerin (Nitrostat) 0.4 mg PRN Q5MIN PRN SL CHEST PAIN; Start 06/06/19 at 11:30 Pantoprazole Sodium (Protonix) 40 mg DAILY PO Last administered on 06/07/19 08:36; Start 06/06/19 at 12:30 Vitamin D (Vitamin D3) 2,000 unit DAILY PO Last administered on 06/07/19 08:36; Start 06/06/19 at 12:30 Multivitamins (Thera M Plus) 1 tab DAILY PO Last administered on 06/07/19at 08:37; Start 06/06/19 at 12:30 Non-Formulary Medication (Ubidecarenone (Coenzyme Q10)) 100 mg DAILY PO ; Start 06/07/19 at 09:00; Status UNV Magnesium Sulfate/ Dextrose 100 ml @ 100 mls/hr 1X ONCE IV Last administered on 06/06/19at 12:47; Start 06/06/19 at 13:00; Stop 06/06/19 at 13:59; Status DC Hydralazine HCl (Apresoline) 10 mg BID PO Last administered on 06/06/19at 17:39; Start 06/06/19 at 16:00 Potassium Chloride (Klor-Con) 40 meq 1X ONCE PO ; Start 06/07/19 at 13:00; Stop 06/07/19 at 13:01; Status DC Active Scripts Active Kimberly 5-325 Tablet (Acetaminophen/Hydrocodone Bitart) 1 Each Tablet 1-2 Tab PO Q4-6HRS Reported Namenda (Memantine Hcl) 10 Mg Tablet 1 Tab PO BID Hydralazine Hcl 10 Mg Tablet 1 Tab PO BID Lexapro (Escitalopram Oxalate) 5 Mg Tablet 5 Mg PO DAILY Chlorthalidone (Chlorthalidone) 25 Mg Tablet 25 Mg PO DAILY Atorvastatin Calcium 40 Mg Tablet 40 Mg PO HS Coenzyme Q10 (Ubidecarenone) 100 Mg Capsule 100 Mg PO DAILY Clopidogrel (Clopidogrel Bisulfate) 75 Mg Tablet 1 Tab PO DAILY Vitamin D-3 (Cholecalciferol (Vitamin D3)) 2,000 Unit Capsule 2,000 Unit PO DAILY Daily Multiple Vitamin (Multivitamin) 1 Each Tablet 1 Each PO DAILY Aspirin Ec (Aspirin) 81 Mg Tablet.dr 1 Tab PO DAILY Tylenol Extra Strength (Acetaminophen) 500 Mg Tablet 500 Mg PO Q6HRS PRN Protonix (Pantoprazole Sodium) 40 Mg Tablet.dr 1 Tab PO DAILY NITROGLYCERIN SubLingual (Nitroglycerin) 0.4 Mg Tab.subl 0.4 Mg SL PRN Q5MIN PRN Vitals/I & O Vital Sign - Last 24 Hours 06/06/19 06/06/19 06/06/19 06/06/19 14:00 15:00 16:00 17:00 Pulse 62 57 54 56 Resp 16 16 16 16 B/P (MAP) 115/58 (77) 118/55 (76) 118/53 (74) 119/55 (76) Pulse Ox 99 98 98 98 O2 Delivery Room Air Room Air Room Air Room Air 06/06/19 06/06/19 06/06/19 06/06/19 17:39 18:00 19:00 20:00 Temp 98.2 98.2 Pulse 56 64 62 61 Resp 16 19 B/P (MAP) 116/51 124/70 (88) 123/56 (78) 105/57 (73) Pulse Ox 98 97 97 O2 Delivery Room Air Room Air Room Air 06/06/19 06/06/19 06/06/19 06/07/19 21:00 22:00 23:00 00:00 Temp 98.7 98.7 Pulse 63 56 78 75 Resp 16 18 14 19 B/P (MAP) 122/58 (79) 121/51 (74) 125/59 (81) 119/60 (79) Pulse Ox 99 O2 Delivery Room Air Room Air Room Air Room Air 06/07/19 06/07/19 06/07/19 06/07/19 01:00 02:00 03:00 04:00 Temp 98.4 98.4 Pulse 78 80 81 69 Resp 16 14 14 20 B/P (MAP) 110/53 (72) 106/53 (70) 109/60 (76) 121/56 (77) O2 Delivery Room Air Room Air Room Air Room Air 06/07/19 06/07/19 06/07/19 06/07/19 05:00 06:00 07:00 08:00 Temp 98.6 98.6 Pulse 87 82 76 81 Resp 18 16 16 16 B/P (MAP) 126/53 (77) 106/51 (69) 102/56 (71) 108/62 (77) O2 Delivery Room Air Room Air Room Air Room Air 06/07/19 06/07/19 06/07/19 09:00 10:00 11:00 Pulse 82 65 77 Resp 16 16 16 B/P (MAP) 106/60 (75) 108/47 (67) 127/60 (82) O2 Delivery Room Air Room Air Room Air Intake and Output 06/06/19 06/06/19 06/07/19 15:00 23:00 07:00 Intake Total 1132 ml 116.2 ml Output Total 200 ml 200 ml 450 ml Balance -200 ml 932 ml -333.8 ml HERNÁN FALLON MD Jun 07, 2019 13:28
--- NOTE | 2019-06-07 14:20 | NUR ---
Recvd patient transfer to unit. Patient arrived accompanied by with heparin infusing. Patient oriented to unit routines, policies and call light within reach.
[2019-06-07] MEDS ORDERED: RIVA1PAT22 TP (15:16)
[2019-06-08 03:00] VITALS: BP 122/57
[2019-06-08 07:00] VITALS: BP 135/67
[2019-06-08] MEDS: MULTIVITAMIN with MINERAL TABLET. PO SCH (09:15)
[2019-06-08] MEDS: hydrALAZINE 10 MG TABLET PO SCH (09:15)
[2019-06-08] MEDS: CLOPIDOGREL BISULFATE 75 MG TABLET PO SCH (09:15)
[2019-06-08] MEDS: ASPIRIN ENTERIC COATED 81 MG TABLET.DR. PO SCH (09:15)
[2019-06-08] MEDS: PANTOPRAZOLE 40 MG TABLET.DR. PO SCH (09:15)
[2019-06-08] MEDS: CHOLECALCIFEROL (VITAMIN D3) 1,000 UNIT TABLET PO SCH (09:16)
[2019-06-08 09:29] LABS: BASO % 1 % (0-3); EOS # 0.3 x10^3/uL (0.0-0.7); EOS % 6 % (0-3); HEMATOCRIT 35.9 % (39.0-53.0); HEMOGLOBIN 12.1 g/dL (13.0-17.5); LYMPH # 0.8 x10^3/uL (1.0-4.8); LYMPH % 16 % (24-48); MEAN CORPUSCULAR HEMOGLOBIN 30 pg (25-35); MEAN CORPUSCULAR HGB CONC 34 g/dL (31-37); MEAN CORPUSCULAR VOLUME 88 fL (79-100); MONO # 0.6 x10^3/uL (0.0-1.1); MONO % 11 % (0-9); NEUT # 3.7 x10^3/uL (1.8-7.7); NEUT % 68 % (31-73); PLATELET COUNT 120 x10^3/uL (140-400); RED BLOOD COUNT 4.08 x10^6/uL (4.30-5.70); RED CELL DISTRIBUTION WIDTH 14.3 % (11.5-14.5); WHITE BLOOD COUNT 5.4 x10^3/uL (4.0-11.0)
[2019-06-08 09:40] LABS: ALBUMIN 2.9 g/dL (3.4-5.0); ALBUMIN/GLOBULIN RATIO 0.8 (1.0-1.7); CALCIUM 8.8 mg/dL (8.5-10.1); CREATININE 0.9 mg/dL (0.7-1.3); GFR 80.2; POTASSIUM 3.4 mmol/L (3.5-5.1); TOTAL BILIRUBIN 0.5 mg/dL (0.2-1.0); TOTAL PROTEIN 6.6 g/dL (6.4-8.2)
[2019-06-08 11:00] VITALS: BP 109/55
--- NOTE | 2019-06-08 11:31 | SNU/HH DC ---
DISCHARGE WITH HOME HEALTH DISCHARGE INFORMATION: Final Diagnosis: Problems Medical Problems: (1) Chest pain Status: Acute (2) CHF (congestive heart failure) Status: Acute (3) Dementia Status: Acute (4) Hypomagnesemia Status: Acute (5) Unstable angina Status: Acute Condition on Discharge: Stable CODE STATUS: Code Status: Full HOME HEALTH: Face to Face: I certify this patient is under my care and that I, or a nurse practitioner or physician's greenhouse assistant working with me, had a face to face encounter that meets the physician face to face encounter requirements with this patient on []. Medical Complications: Dementia RN For Eval/Treatment: Yes Physical Therapy For: Evalulation/Treatment Occupational Therapy For: Evaluation/Treatment Speech Language Pathology For: Evaluation/Treatment Home Health Aide For: Self-care STOCK PREPARATION SUPERVISOR For: Community Resources Pt Meets Homebound Status: Extreme weakness w/ amb. POST DISCHARGE ORDERS: Activity Instructions for Disc: No restrictions Weight Bearing Status after Di: As tolerated DIET AFTER DISCHARGE: Cardiac CERTIFICATION STATEMENT: Certification Statement: Certification Statement: Based on the above finding, I certify that this patient is confined to the home and needs intermittent jail care, physical therapy and/or speech therapy, or continues to need occupational therapy.~ This patient is under my care, and I have initiated the establishment of the plan of care.~ This patient will be followed by myself or a community physician who will periodically review the plan of care. Home Meds Active Scripts Hydrocodone/Apap 5-325 (NORCO 5-325 TABLET) 1 Each Tablet, 1-2 TAB PO Q4-6HRS, #20 TAB Prov:NEO BROWN 03/13/16 Reported Medications Rivastigmine (EXELON 4.6mg/24hr) 1 Each Patch.td24, 1 PATCH TP DAILY for , #30 PATCH 3 Refills 06/07/19 Memantine Hcl (NAMENDA) 10 Mg Tablet, 1 TAB PO BID for DEMENTIA, #180 TAB 1 Refill 06/06/19 Hydralazine Hcl (HYDRALAZINE HCL) 10 Mg Tablet, 1 TAB PO BID for HIGH BLOOD PRESSURE, #60 TAB 3 Refills 06/06/19 Escitalopram Oxalate (LEXAPRO) 5 Mg Tablet, 5 MG PO DAILY for DEMENTIA, TAB 06/06/19 Chlorthalidone (CHLORTHALIDONE ) 25 Mg Tablet, 25 MG PO DAILY for DIURETIC, TAB 06/06/19 Atorvastatin Calcium (ATORVASTATIN CALCIUM) 40 Mg Tablet, 40 MG PO HS for FOR CHOLESTEROL, #30 TAB 0 Refills 06/06/19 Ubidecarenone (COENZYME Q10) 100 Mg Capsule, 100 MG PO DAILY 02/11/16 Clopidogrel Bisulfate (CLOPIDOGREL) 75 Mg Tablet, 1 TAB PO DAILY, #90 TAB 1 Refill 02/11/16 Cholecalciferol (Vitamin D3) (VITAMIN D-3) 2,000 Unit Capsule, 2000 UNIT PO DAILY 02/11/16 Multivitamin (DAILY MULTIPLE VITAMIN) 1 Each Tablet, 1 EACH PO DAILY 02/11/16 Aspirin (ASPIRIN EC) 81 Mg Tablet.dr, 1 TAB PO DAILY, #30 TAB 3 Refills 02/11/16 Acetaminophen (TYLENOL EXTRA STRENGTH) 500 Mg Tablet, 500 MG PO Q6HRS PRN for PAIN 02/11/16 Pantoprazole Sodium (PROTONIX ) 40 Mg Tablet.dr, 1 TAB PO DAILY, #30 TAB 5 Refills 02/11/16 Nitroglycerin (NITROGLYCERIN SubLingual) 0.4 Mg Tab.subl, 0.4 MG SL PRN Q5MIN PRN for CHEST PAIN, BOTTLE 02/11/16 Discontinued Reported Medications Guaifenesin (GUAIFENESIN) 600 Mg Tablet.er, 600 MG PO BID PRN for CONGESTION 02/11/16 Furosemide (FUROSEMIDE) 20 Mg Tablet, 1 TAB PO DAILY, #90 TAB 1 Refill 02/11/16 Carvedilol (COREG ) 3.125 Mg Tablet, 1 TAB PO BID, #180 TAB 1 Refill 02/11/16 Atorvastatin Calcium (ATORVASTATIN CALCIUM) 80 Mg Tablet, 1 TAB PO DAILY, #30 TAB 5 Refills 02/11/16 Isosorbide Mononitrate (ISOSORBIDE MONONITRATE ER) 60 Mg Tab.er.24h, 1 TAB PO DAILY, #30 TAB 5 Refills 02/11/16 Ranolazine (RANEXA) 1,000 Mg Tab.er.12h, 1 TAB PO BID, #60 TAB 5 Refills 02/11/16 Potassium Chloride (POTASSIUM CHLORIDE) 10 Meq Capsule.er, 20 MEQ PO DAILY, #1 TAB.SR two po daily 02/11/16 Hathaway-3 Fatty Acids/Fish Oil (OMEGA 3 FISH OIL SOFTGEL) 1 Each Capsule.dr, 1 EACH PO BID, CAP Hathaway 3 350-400 mg cap 02/11/16 Losartan Potassium (COZAAR ) 25 Mg Tablet, 25 MG PO DAILY, TAB 02/11/16 RELL QUIJANO III DO Jun 08, 2019 11:31
--- NOTE | 2019-06-08 11:41 | PDOC ---
[facility] [facility] PROGRESS NOTE Chief Complaint Chief Complaint Unstable angina CAD History of Present Illness History of Present Illness 06/08/19 Pt seen and examined Pt was accompanied by Pt was very agitiated today about his needles in his arms. He remains to be confused but at his baseline. We talked about removing the IV ports and discharging today HE denies any pain DW and nurse 06/07/19 Pt was seen and examined in the ICU Pt was accompanied by Pt was pleasant, but confused when asked questions IV heparin is still administered Nitro stopped Charts and labs reviewed Potassium was 3.3, down from 3.6 Magnesium remains 1.6 D/w RN Vitals/I&O Vitals/I&O: Vital Signs Date Time Temp Pulse Resp B/P (MAP) Pulse Ox O2 Delivery O2 Flow Rate FiO2 06/08/19 11:00 97.9 78 16 109/55 (73) 97 Room Air 97.9 06/08/19 08:00 2.0 I & O 06/07/19 06/07/19 06/08/19 15:00 23:00 07:00 Intake Total 1000 ml 400 ml Output Total 600 ml 250 ml Balance 400 ml -250 ml 400 ml Physical Exam General: No acute distress Heart: Regular rate Lungs: Clear Abdomen: Normal bowel sounds Labs Labs: Laboratory Tests Test 06/08/19 09:00 White Blood Count 5.4 x10^3/uL (4.0-11.0) Red Blood Count 4.08 x10^6/uL (4.30-5.70) Hemoglobin 12.1 g/dL (13.0-17.5) Hematocrit 35.9 % (39.0-53.0) Mean Corpuscular Volume 88 fL (79-100) Mean Corpuscular Hemoglobin 30 pg (25-35) Mean Corpuscular Hemoglobin Concent 34 g/dL (31-37) Red Cell Distribution Width 14.3 % (11.5-14.5) Platelet Count 120 x10^3/uL (140-400) Neutrophils (%) (Auto) 68 % (31-73) Lymphocytes (%) (Auto) 16 % (24-48) Monocytes (%) (Auto) 11 % (0-9) Eosinophils (%) (Auto) 6 % (0-3) Basophils (%) (Auto) 1 % (0-3) Neutrophils # (Auto) 3.7 x10^3/uL (1.8-7.7) Lymphocytes # (Auto) 0.8 x10^3/uL (1.0-4.8) Monocytes # (Auto) 0.6 x10^3/uL (0.0-1.1) Eosinophils # (Auto) 0.3 x10^3/uL (0.0-0.7) Basophils # (Auto) 0.0 x10^3/uL (0.0-0.2) Heparin Anti-Xa Act, Unfractionated 0.37 IU/mL (0.30-0.70) Sodium Level 139 mmol/L (136-145) Potassium Level 3.4 mmol/L (3.5-5.1) Chloride Level 105 mmol/L (98-107) Carbon Dioxide Level 27 mmol/L (21-32) Anion Gap 7 (6-14) Blood Urea Nitrogen 13 mg/dL (8-26) Creatinine 0.9 mg/dL (0.7-1.3) Estimated GFR (Cockcroft-Gault) 80.2 BUN/Creatinine Ratio 14 (6-20) Glucose Level 96 mg/dL (70-99) Calcium Level 8.8 mg/dL (8.5-10.1) Total Bilirubin 0.5 mg/dL (0.2-1.0) Aspartate Amino Transf (AST/SGOT) 19 U/L (15-37) Alanine Aminotransferase (ALT/SGPT) 10 U/L (16-63) Alkaline Phosphatase 47 U/L (46-116) Total Protein 6.6 g/dL (6.4-8.2) Albumin 2.9 g/dL (3.4-5.0) Albumin/Globulin Ratio 0.8 (1.0-1.7) Review of Systems Review of Systems: Denies pain Denies n/v/d Assessment and Plan Assessmemt and Plan Problems Medical Problems: (1) Chest pain Status: Acute (2) CHF (congestive heart failure) Status: Acute (3) Dementia Status: Acute (4) Hypomagnesemia Status: Acute (5) Unstable angina Status: Acute Assessment Chest pain CHF Dementia Hypomagnesemia Hypokalemia Unstable angina Plan Probable discharge okay with cardio Home meds IV heparin Potassium 40meq DNR Comment Review of Relevant I have reviewed the following items to (where applicable) has been applied. Medications: Current Medications Medications (Trade) Dose Ordered Sig/Kameron Route PRN Reason Start Time Stop Time Status Last Admin Dose Admin Potassium Chloride (Klor-Con) 40 meq 1X ONCE PO 06/07/19 13:00 06/07/19 13:01 DC 06/07/19 17:48 RELL QUIJANO III DO Jun 08, 2019 11:41
[2019-06-08] MEDS ORDERED: POTASSIUM CHLORIDE 20 MEQ TABLET.ER. PO ONE (11:45)
--- NOTE | 2019-06-09 09:20 | CARD ---
MR#: [id number] Date of Study: 06/07/2019 Ordering Physician: HERNÁN FALLON, Referring Physician: HERNÁN FALLON, Tech: Vianey Parnell RDCS APPROVED REPORT EXAM: Two-dimensional and M-mode echocardiogram with Doppler and color Doppler. Other Information Quality : GoodHR: 80bpm Rhythm : NSR INDICATION Congestive Heart Failure 2D DIMENSIONS Left Atrium(2D)4.0 (1.6-4.0cm)IVSd0.9 (0.7-1.1cm) Aortic Root(2D)3.0 (2.0-3.7cm)LVDd6.2 (3.9-5.9cm) LVOT Diameter2.4 (1.8-2.4cm)PWd0.8 (0.7-1.1cm) LA Lkcwnh94 (18-58mL)LVDs5.3 (2.5-4.0cm) FS (%) 14.7 %SV60.2 ml LVEF(%)30.5 (>50%) Aortic Valve AoV Peak Darren.158.4cm/sAoV VTI27.9cm AO Peak GR.10.0mmHgLVOT Peak Darren.72.7cm/s AO Mean GR.5mmHgAVA (VMAX)2.34cm2 DARRELL (VTI)2.90ma9UJ P 1/2 Iwse623oq Mitral Valve MV E Dxtnrqvb30.9cm/sMV DECEL [id number] MV A Mxxhwgiu287.0cm/sE/A Ratio0.4 MV A Gkwpesfo715ts Tricuspid Valve TR P. Xetnxbek192ue/sTR Peak Gr.28mmHg LEFT VENTRICLE The Left Ventricle is mildly dilated. There is normal left ventricular wall thickness. The left ventr icular systolic function is moderately impaired. The ejection fraction is estimated at 30-35%. Transm itral Doppler flow pattern is Grade I-abnormal relaxation pattern. No left ventricle thrombus noted o n this study. There is no ventricular septal defect visualized. There is no left ventricular aneurysm . There is no mass noted in the left ventricle. RIGHT VENTRICLE The right ventricle is normal size. There is normal right ventricular wall thickness. The right ventr icular systolic function is normal. ATRIA The left atrium is mildly dilated. The right atrium size is normal. The interatrial septum is intact with no evidence for an atrial septal defect or patent foramen ovale as noted on 2-D or Doppler imagi ng. AORTIC VALVE The aortic valve is normal in structure and function. Doppler and Color Flow revealed mild aortic reg urgitation. There is no significant aortic valvular stenosis. There is no aortic valvular vegetation. MITRAL VALVE The mitral valve is normal in structure and function. There is no evidence of mitral valve prolapse. There is no mitral valve stenosis. Doppler and Color Flow revealed mild mitral regurgitation. TRICUSPID VALVE The tricuspid valve is normal in structure and function. Doppler and Color Flow revealed mild tricusp id regurgitation. There is no tricuspid valve prolapse or vegetation. There is no tricuspid valve nuris nosis. PULMONIC VALVE The pulmonary valve is normal in structure and function. Doppler and Color Flow revealed trace pulmon ic valvular regurgitation. There is no pulmonic valvular stenosis. GREAT VESSELS The aortic root is normal in size. The IVC is normal in size and collapses >50% with inspiration. PERICARDIAL EFFUSION There is no pleural effusion. There is no evidence of significant pericardial effusion. Critical Notification Critical Value: No <Conclusion> The left ventricular systolic function is moderately impaired. The ejection fraction is estimated at 30-35%. Transmitral Doppler flow pattern is Grade I-abnormal relaxation pattern. Mild aortic regurgitation. Mild mitral regurgitation. Mild tricuspid regurgitation. There is no evidence of significant pericardial effusion. Signed by : Oswald Bangura, Electronically Approved : 06/08/2019 08:37:42
== END 2019-06-08 12:19 | disposition home or self-care (01) | DRG 303 ==
LOC: ER 04:10 → 1 WEST ICU 04:44 → 2 SOUTH 06-07 14:31
PROVIDERS: ADMIT Internal Medicine; ATTEND Internal Medicine
DX: I25.110 Atherosclerotic heart disease of native coronary artery with unstable angina pectoris (principal); E87.6 Hypokalemia; I50.9 Heart failure, unspecified; F03.90 Unspecified dementia, unspecified severity, without behavioral disturbance, psychotic disturbance, mood disturbance, and anxiety; I11.0 Hypertensive heart disease with heart failure; E78.5 Hyperlipidemia, unspecified; E83.42 Hypomagnesemia; Z66 Do not resuscitate; I25.2 Old myocardial infarction; Z91.048 Other nonmedicinal substance allergy status; Z95.1 Presence of aortocoronary bypass graft; Z88.8 Allergy status to other drugs, medicaments and biological substances
CPT/HCPCS: 36415; 71045; 80048; 80053; 81001; 82550; 83690; 83735; 83880; 84484; 85025; 85520; 85610; 93005; 93306; 96365; 96368; 96376; J1644; J3475; J3490; 99291-25; G0378